=== PATIENT | female | born 1955 | race Caucasian/White ===

== ENCOUNTER 2019-03-11 22:05 | Emergency (ER) | payer BC, OTHER ==
[2019-03-11 23:06] LABS: ABSOLUTE BASOPHILS # (AUTO) 0.1 10^3/uL (0.0-0.2); ABSOLUTE EOSINOPHILS # (AUTO) 0.3 10^3/uL (0.0-0.6); ABSOLUTE NEUT (AUTO) 5.2 10^3/uL (1.7-8.2); BASOPHILS % (AUTO) 0.8 % (0-2); EOSINOPHILS % (AUTO) 3.2 % (0-6); HEMOGLOBIN 13.1 g/dL (12.0-15.5); LYMPHOCYTES % (AUTO) 24.7 % (13-45); TOTAL CELLS COUNTED % (AUTO) 100 %
[2019-03-11 23:09] LABS: ABSOLUTE MONOCYTES (AUTO) 0.6 10^3/uL (0.1-1.4); HEMATOCRIT 38.7 % (36.0-47.0); MEAN CORPUSCULAR HEMOGLOBIN 30.2 pg (27.0-33.4); MEAN CORPUSCULAR HGB CONC 33.8 g/dL (32.0-36.0); MEAN CORPUSCULAR VOLUME 89 fl (80-97); MONOCYTES % (AUTO) 6.8 % (3-13); PLATELET COUNT 233 10^3/uL (150-450); RED BLOOD COUNT 4.33 10^6/uL (3.72-5.28); RED CELL DISTRIBUTION WIDTH 13.9 % (11.5-14.0); SEGMENTED NEUTROPHILS % (AUTO) 64.5 % (42-78); WHITE BLOOD COUNT 8.1 10^3/uL (4.0-10.5)
[2019-03-11 23:25] LABS: ALBUMIN 4.5 g/dL (3.5-5.0); ALKALINE PHOSPHATASE 76 U/L (38-126); ANION GAP 12 (5-19); ASPARTATE AMINO TRANSFERASE 23 U/L (14-36); BILIRUBIN,DIRECT 0.1 mg/dL (0.0-0.4); BILIRUBIN,TOTAL 0.4 mg/dL (0.2-1.3); BLOOD UREA NITROGEN 22 mg/dL (7-20); CALCIUM 10.2 mg/dL (8.4-10.2); CARBON DIOXIDE 26 mmol/L (22-30); CHLORIDE 105 mmol/L (98-107); CREATINE KINASE 199 U/L (30-135); GLUCOSE 104 mg/dL (75-110); POTASSIUM 3.3 mmol/L (3.6-5.0); TOTAL PROTEIN 7.6 g/dL (6.3-8.2)
[2019-03-11 23:36] LABS: CREATINE KINASE MB 1.96 ng/mL (<4.55)
[2019-03-11 23:37] LABS: TROPONIN I < 0.012 ng/mL
--- NOTE | 2019-03-11 23:40 | EKG REPORT ---
SEVERITY:- ABNORMAL ECG - SINUS RHYTHM PROBABLE LVH WITH SECONDARY REPOL ABNRM : Confirmed by: Demian Palma 11-Mar-2019 23:39:33
--- NOTE | 2019-03-11 23:51 | RADIOLOGY REPORT (SQ) ---
EXAM DESCRIPTION: XR CHEST 2 VIEWS COMPLETED DATE/TME: 03/11/2019 00:00 CLINICAL HISTORY: 63 years, Female, CP COMPARISON: 07/01/2018 chest NUMBER OF VIEWS: 2 TECHNIQUE: 2 view chest LIMITATIONS: None. FINDINGS: Heart size normal. Lungs clear. No pneumothorax IMPRESSION: Negative chest copyright 2010 [employer]- All Rights Reserved
[2019-03-12] MEDS ORDERED: LORAZEPAM INJ 2 MG/1 ML VIAL IV ONE ×2 (02:07→03:00)
--- NOTE | 2019-03-12 04:00 | ER Document Report ---
ED Cardiac - General Chief Complaint: Chest Tightness Stated Complaint: TIGHTNESS IN CHEST Time Seen by Provider: 03/12/19 00:42 Primary Care Provider: KAMILAH ERNANDEZ MD [Primary Care Provider] - Follow up as needed Mode of Arrival: Ambulatory Information source: Patient Notes: Patient is a 63-year-old female presents emergency department chief complaint of chest pain. She reports intermittent chest pressure has been ongoing for several weeks. She reports that she went her primary care provider who scheduled her for a stress test next week. Today the chest tightness came back and she felt like she could not get a full breath. Patient does admit that she has some anxiety about the fact that she is going to be having a stress test. She denies any radiation of the pressure, denies any nausea, vomiting or shortness of breath. TRAVEL OUTSIDE OF THE [place] IN LAST 30 DAYS: No - Related Data Allergies/Adverse Reactions: benzonatate Allergy (Verified 03/11/19 23:00) chlorzoxazone [From Parafon Forte] Allergy (Verified 03/11/19 23:00) moxifloxacin [From Avelox] Allergy (Verified 03/11/19 23:00) Penicillins Allergy (Verified 03/11/19 23:00) propoxyphene [From Darvon] Allergy (Verified 03/11/19 23:00) Sulfa (Sulfonamide Antibiotics) Allergy (Verified 03/11/19 23:00) MELVA Inhibitors Adverse Reaction (Verified 03/11/19 23:00) hydrocodone Adverse Reaction (Verified 03/11/19 23:00) oxycodone Adverse Reaction (Verified 03/11/19 23:00) Home Medications: edarbyclor 40/12.5 qday. kl0r 10mEq qday. calcium [id number]/800iu qday singulaair 10 mg qday. asa 81 mg qday. fiber qday. zyrtec 10 mg qday. multivit 1 qday Past Medical History - General Information source: Patient - Social History Smoking Status: Never Smoker Frequency of alcohol use: Occasional Drug Abuse: None Family History: Reviewed & Not Pertinent Patient has suicidal ideation: No Patient has homicidal ideation: No - Past Medical History Cardiac Medical History: Reports: Hx Hypertension Pulmonary Medical History: Reports: Hx Asthma, Hx Bronchitis GI Medical History: Reports: Hx Gastroesophageal Reflux Disease Past Surgical History: Reports: Hx Cholecystectomy, Hx Hysterectomy Review of Systems - Review of Systems Constitutional: No symptoms reported EENT: No symptoms reported Cardiovascular: See HPI Respiratory: No symptoms reported Gastrointestinal: No symptoms reported Genitourinary: No symptoms reported Female Genitourinary: No symptoms reported Musculoskeletal: No symptoms reported Skin: No symptoms reported Hematologic/Lymphatic: No symptoms reported Neurological/Psychological: No symptoms reported Physical Exam - Vital signs Vitals: Temp Pulse Resp BP Pulse Ox 97.4 F 64 16 145/83 H 98 03/11/19 22:16 03/11/19 22:16 03/11/19 22:16 03/11/19 22:16 03/11/19 22:16 - Notes Notes: PHYSICAL EXAMINATION: GENERAL: Well-appearing, well-nourished and in no acute distress. HEAD: Atraumatic, normocephalic. EYES: Pupils equal round and reactive to light, extraocular movements intact, conjunctiva are normal. ENT: Nares patent, oropharynx clear without exudates. Moist mucous membranes. NECK: Normal range of motion, supple without lymphadenopathy LUNGS: Breath sounds clear to auscultation bilaterally and equal. No wheezes rales or rhonchi. HEART: Regular rate and rhythm without murmurs ABDOMEN: Soft, nontender, nondistended abdomen. No guarding, no rebound. No masses appreciated. Female : deferred Musculoskeletal: Normal range of motion, no pitting or edema. No cyanosis. NEUROLOGICAL: Cranial nerves grossly intact. Normal speech, normal gait. Normal sensory, motor exams PSYCH: Normal mood, normal affect. SKIN: Warm, Dry, normal turgor, no rashes or lesions noted. Course - Re-evaluation Re-evalutation: Laboratory 03/11/19 03/11/19 03/11/19 22:52 22:52 22:52 WBC 8.1 RBC 4.33 Hgb 13.1 Hct 38.7 MCV 89 MCH 30.2 MCHC 33.8 RDW 13.9 Plt Count 233 Lymph % (Auto) 24.7 Boyle % (Auto) 6.8 Eos % (Auto) 3.2 Baso % (Auto) 0.8 Absolute Neuts (auto) 5.2 Absolute Lymphs (auto) 2.0 Absolute Monos (auto) 0.6 Absolute Eos (auto) 0.3 Absolute Basos (auto) 0.1 Seg Neutrophils % 64.5 Sodium 142.9 Potassium 3.3 L Chloride 105 Carbon Dioxide 26 Anion Gap 12 BUN 22 H Creatinine 0.94 Est GFR ( Amer) > 60 Est GFR (MDRD) Non-Af > 60 Glucose 104 Calcium 10.2 Total Bilirubin 0.4 Direct Bilirubin 0.1 Neonat Total Bilirubin Not Reportable Neonat Direct Bilirubin Not Reportable Neonat Indirect Bili Not Reportable AST 23 ALT 23 Alkaline Phosphatase 76 Creatine Kinase 199 H CK-MB (CK-2) 1.96 Troponin I < 0.012 Total Protein 7.6 Albumin 4.5 03/12/19 02:06 WBC RBC Hgb Hct MCV MCH MCHC RDW Plt Count Lymph % (Auto) Boyle % (Auto) Eos % (Auto) Baso % (Auto) Absolute Neuts (auto) Absolute Lymphs (auto) Absolute Monos (auto) Absolute Eos (auto) Absolute Basos (auto) Seg Neutrophils % Sodium Potassium Chloride Carbon Dioxide Anion Gap BUN Creatinine Est GFR ( Amer) Est GFR (MDRD) Non-Af Glucose Calcium Total Bilirubin Direct Bilirubin Neonat Total Bilirubin Neonat Direct Bilirubin Neonat Indirect Bili AST ALT Alkaline Phosphatase Creatine Kinase CK-MB (CK-2) Troponin I < 0.012 Total Protein Albumin Chest X-Ray 03/11/19 00:00 IMPRESSION: Negative chest copyright 2011 [employer]- All Rights Reserved EKG shows a sinus rhythm, rate of 61, QTc 444, no ST segment elevations or depressions to suggest ischemia. Chest x-ray was unremarkable. We kept patient in the emergency department and cycle 2 troponins both were negative. Patient already has stress test ordered for this coming up Saturday which is 4 days from now. Patient was given a dose of Ativan here in the emergency department she stated that she felt anxious, this did resolve her anxiety and did help with her chest pain. She has been chest pain-free for several hours prior to discharge. Patient and feel comfortable with ED return precautions. - Vital Signs Vital signs: Temp Pulse Resp BP Pulse Ox 97.9 F 61 15 113/72 97 03/12/19 04:34 03/12/19 04:34 03/12/19 04:34 03/12/19 04:34 03/12/19 04:34 - Laboratory Result Diagrams: 03/11/19 22:52 03/11/19 22:52 Laboratory results interpreted by me: 03/11/19 22:52 Potassium 3.3 L BUN 22 H Creatine Kinase 199 H Discharge - Discharge Clinical Impression: Anxiety Chest pain Qualifiers: Chest pain type: unspecified Qualified Code(s): R07.9 - Chest pain, unspecified Condition: Stable Disposition: HOME, SELF-CARE Additional Instructions: You were seen today for chest pain. The exact cause of your pain is unclear. However, based on your cardiac enzyme testing, chest x-ray, and EKG it does not appear that it is from an immediately life-threatening cause at this time. Although your testing here is normal is critical that you follow-up with your primary care physician for continued evaluation of this chest pain and possible stress testing. I recommended you keep the appointment with your doctor for your stress test on Saturday. Please return to emergency department immediately if you have worsening of your chest pain, shortness of breath, vomiting, become unable to exert yourself due to pain or difficulty breathing, you pass out, or have any pain that radiates into your arms, jaw, or back. Please also return if you have any additional symptoms that are concerning to you. Take the medication as prescribed for anxiety symptoms. Please return to the emergency department if you develop any worsening symptoms such as those outlined above. Prescriptions: Lorazepam [Ativan 1 mg Tablet] 1 mg PO TID #15 tab Referrals: KAMILAH ERNANDEZ MD [Primary Care Provider] - Follow up as needed
[2019-03-12 04:37] VITALS: BP 113/72
== END 2019-03-12 04:34 | disposition home or self-care (01) ==
LOC: ER 22:05
DX: F41.9 Anxiety disorder, unspecified (principal); R07.89 Other chest pain; I10 Essential (primary) hypertension; J45.909 Unspecified asthma, uncomplicated; Z79.82 Long term (current) use of aspirin; Z79.899 Other long term (current) drug therapy; Z88.8 Allergy status to other drugs, medicaments and biological substances; Z88.0 Allergy status to penicillin; Z88.2 Allergy status to sulfonamides; Z88.6 Allergy status to analgesic agent; Z88.5 Allergy status to narcotic agent
CPT/HCPCS: 93005; 96376; 99285; 96374; 36415; 82553; 82550; 85025; 80053; 84484; 71046; 93010; J2060